=== PATIENT | female | born 1990 | race African-American/Black ===

== ENCOUNTER 2021-03-19 16:29 | Outpatient (CLI) | payer MEDICAID, SELFPAY ==
--- NOTE | ~2021-03-19 | US_ITS ---
EXAMINATION: US OB follow up DATE: 03/19/2021 17:18 INDICATION: Viability. TECHNIQUE: Real-time ultrasound of the pelvis was performed. COMPARISON: None. FINDINGS: There is a single living fetus in variable presentation. The placenta is fundal. heart rate is 136 beats per minute (bpm). The amniotic fluid volume is subjectively normal. The following biometric data were obtained: Biparietal diameter (BPD): 2.7 cm; head circumference (HC): 10.6 cm; abdominal circumference (AC): 8. 7 cm; femur length (FL): 1.8 cm. These measurements are concordant. Estimated weight is 116 g +/- 17 g, which correlates with <3rd percentile when 08/16/21 is used a s estimated date of delivery. As single measurements, these parameters are each equal to the following estimated gestational ages: BPD: 14 weeks 6 days. HC: 15 weeks 0 days. AC: 15 weeks 0 days. FL: 15 weeks 2 days. estimated gestational age based solely on measurements from this exam is 15 weeks 0 days +/- 1 weeks 0 days. IMPRESSION: 1. Single living fetus in variable presentation. 2. Small for gestational age. Estimated weight is 116 g +/- 17 g, which correlates with <3rd p ercentile when 08/16/21 is used as estimated date of delivery. Estimated date of delivery based on this ultrasound would be 09/10/2021. Reviewed, dictated and finalized at location A. IMPRESSION: 1. Single living fetus in variable presentation. 2. Small for gestational age. Estimated weight is 116 g +/- 17 g, which correlates with <3rd percentile when 08/16/21 is used as estimated date of delive ry. Estimated date of delivery based on this ultrasound would be 09/10/2021.
== END 2021-03-19 16:30 | disposition home or self-care (01) ==
LOC: ANHIMG 16:34
PROVIDERS: Visit Provider Obstetrics & Gynecology
DX: O20.0 Threatened abortion (principal); Z3A.15 15 weeks gestation of pregnancy
CPT/HCPCS: 76816

== ENCOUNTER 2021-04-09 14:11 | Outpatient (CLI) | payer OTHER, SELFPAY ==
[2021-04-09 14:37] LABS: Basophils Percent Auto 0.2 % (0.2-1.2); Eosinophils Absolute Auto 0.1 K/mm3 (0-0.3); Eosinophils Percent Auto 1.7 % (0-4.4); Hematocrit 33.1 % (37.0-47.0); Hemoglobin 11.5 g/dL (12.0-15.0); Immature Granulocyte Absolute 0.02 K/mm3 (0.00-0.031); Immature Granulocyte Percent A 0.5 % (0-0.5); Lymphocytes Absolute Auto 1.35 K/mm3 (0.9-3.2); Lymphocytes Percent Auto 32.5 % (18.3-44.2); Mean Corpuscular HGB Conc 34.7 g/dl (32-36); Mean Corpuscular Hemoglobin 32.7 pg (26-34); Mean Platelet Volume 9.6 fl (7.4-10.4); Monocytes Absolute Auto 0.4 K/mm3 (0.1-0.6); Monocytes Percent Auto 9.4 % (2.6-8.5); Neutrophils Absolute Auto 2.3 K/mm3 (1.3-6.7); Neutrophils Percent Auto 55.7 % (45.5-73.1); Platelet Count Result 207 k/mm3 (150-375); Red Blood Count 3.52 M/mm3 (4.2-5.4); Red Cell Distribution Width 12.9 % (11.5-14.5); White Blood Count 4.2 K/mm3 (4.5-10.0)
[2021-04-09 14:49] LABS: Add Urine Microscopic? YES; Appearance Urine Cloudy (Clear); Bacteria Urine Trace /hpf; Bilirubin Urine Negative (Negative); Blood Urine Negative (Negative); Color Urine Yellow (Yellow); Glucose Urine UA Negative (Negative); Ketones Urine Negative (Negative); Leukocyte Esterase Ur 2+ LEU/UL (NEGATIVE); Mucus Urine Rare /lpf; Nitrate Urine Negative (Negative); Protein Urine Negative (Negative); Specific Grav Ur 1.014 (1.001-1.035); Squamous Epithelial Cell Urine Many /hpf (Few); Urobilinogen Urine Negative mg/dL (<2.0)
[2021-04-09 15:37] LABS: HIV 1/2 Ab P24 Ag Result Negative (Negative)
[2021-04-09 18:33] LABS: Vitamin D 25 Hydroxy 34.5 ng/mL
[2021-04-09 18:55] LABS: Hepatitis B Surface Antigen Negative (Negative); Rubella IgG Antibody 9.2 IU/ML
[2021-04-09 19:04] LABS: Hepatitis C Virus Antibody Negative (Negative)
[2021-04-11 09:47] LABS: Rapid Plasma Reagin Non-Reactive (NonReactive)
[2021-04-13 18:20] LABS: Hematocrit 32.9 % (35.0-45.0); Hemoglobin 11.4 g/dL (11.7-15.5); MCH 33.2 pg (27.0-33.0); MCV 95.9 fL (80.0-100.0); RDW 13.5 % (11.0-15.0); Red Blood Cell Count 3.43 Mill/uL (3.80-5.10)
== END 2021-04-09 14:12 | disposition home or self-care (01) ==
PROVIDERS: Visit Provider Obstetrics & Gynecology
DX: Z34.90 Encounter for supervision of normal pregnancy, unspecified, unspecified trimester (principal); Z3A.00 Weeks of gestation of pregnancy not specified
CPT/HCPCS: 36415; 81001; 82306; 83021; 84443; 85025; 86592; 86703; 86762; 86787; 86803; 86850; 86900; 86901; 87086; 87088; 87340; G0432